=== PATIENT | male | born 1955 | race Two or more races ===

== ENCOUNTER 2023-04-07 05:20 | Day surgery (SDC) | payer OTHER ==
[~2023-04-07] VITALS: Ht 167.6 cm; Wt 67.6 kg
[~2023-04-07 05:20] MED LIST: AMLODIPINE BESYL5 MG PO; CANDESARTAN CIL16 MG PO; CARDURA XL4 MG PO; CARVEDILOL12.5 MG PO; CHILDREN'S ASPI81 MG PO; COZAAR100 MG PO; FORTAMET1000 MG PO; HYDRALAZINE HCL10 MG PO; OXYBUTYNIN CHL2.5 MG PO; SIMVASTATIN40 MG PO
== END 2023-04-07 16:20 | disposition home or self-care (01) ==
LOC: CIR.AMB 05:20
PROVIDERS: ATTEND Urology
DX: N43.2 Other hydrocele (principal); N43.3 Hydrocele, unspecified; Z20.822 Contact with and (suspected) exposure to COVID-19; I10 Essential (primary) hypertension; E11.9 Type 2 diabetes mellitus without complications; Z79.84 Long term (current) use of oral hypoglycemic drugs